=== PATIENT | female | born 1990 | race Caucasian/White ===

== ENCOUNTER 2023-08-18 17:49 | Emergency (ER) | payer OTHER, SELFPAY ==
--- NOTE | ~2023-08-18 | XR_ITS ---
EXAMINATION: XR RIGHT FOOT, 2 VIEWS XR RIGHT ANKLE, 3 VIEWS CLINICAL INFORMATION: Foot pain status post inversion injury COMPARISON: None available. TECHNIQUE: 2 views of the right foot 3 views of the right ankle FINDINGS: No acute visible fracture or dislocation. Ankle mortise is symmetric. Joint spaces and alignment are otherwise maintained. Slight soft tissue prominence along the lateral malleolus. XR/XR foot RT min 3V IMPRESSION: 1. No acute visible fracture or dislocation. 2. Slight soft tissue prominence along the lateral malleolus.
--- NOTE | ~2023-08-18 | XR_ITS ---
EXAMINATION: XR RIGHT FOOT, 2 VIEWS XR RIGHT ANKLE, 3 VIEWS CLINICAL INFORMATION: Foot pain status post inversion injury COMPARISON: None available. TECHNIQUE: 2 views of the right foot 3 views of the right ankle FINDINGS: No acute visible fracture or dislocation. Ankle mortise is symmetric. Joint spaces and alignment are otherwise maintained. Slight soft tissue prominence along the lateral malleolus. XR/XR ankle RT min 3V IMPRESSION: 1. No acute visible fracture or dislocation. 2. Slight soft tissue prominence along the lateral malleolus.
[2023-08-18 18:33] VITALS: BP 134/71; PULSE 88; RESP 18; TEMP 37.1; O2SAT 99; BMI 28.9
--- NOTE | 2023-08-18 18:33 | ED.LOWEXIN ---
HPI - Extremity Injury (Lower) General Chief Complaint: Extremity Injury, Lower Stated Complaint: rt ankle? fracture Time Seen by Provider: 08/18/23 21:37 Related Data Allergies Allergy/AdvReac Type Severity Reaction Status Date / Time No Known Allergies Allergy Verified 08/18/23 18:33 [facility] Social History Social History Advance Directives: No Advance Directives Information Provided: No Physical Exam Vital Signs: Vital Signs: Last Vital Signs Temp 98.7 F 08/18/23 18:33 Pulse 88 08/18/23 18:33 Resp 18 08/18/23 18:33 BP 134/71 08/18/23 18:33 Pulse Ox 99 08/18/23 18:33 O2 Del Method Room Air 08/18/23 18:33 BMI result Body Mass Index 28.9 Course Course Course Narrative: This is an RME: Additional HPI, ROS, PE not included below will be deferred to primary provider. This is a 33 female presenting to the ER with a complaint of right ankle and foot pain since today. 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 She has been able to partially bear weight on her right foot and ankle. Tenderness palpation along the lateral malleolus with swelling noted. Plan: X-ray right ankle right foot Reevaluation(s) Reevaluation #1: pt eloped prior to being fully evaluated. Discharge Plan Discharge Clinical Impression: Ankle sprain and strain Patient Disposition: Left W/O Completing Treatment Discharge Date/Time: 08/18/23 21:40
== END 2023-08-18 21:40 | disposition left against medical advice (07) ==
PROVIDERS: Emergency Provider Emergency Medicine
DX: S93.401A Sprain of unspecified ligament of right ankle, initial encounter (principal); S96.911A Strain of unspecified muscle and tendon at ankle and foot level, right foot, initial encounter; X50.1XXA Overexertion from prolonged static or awkward postures, initial encounter; Y93.02 Activity, running; Y92.219 Unspecified school as the place of occurrence of the external cause; Y99.0 Civilian activity done for income or pay
CPT/HCPCS: 73610; 73630; 99281; 99283